=== PATIENT | female | born 1990 | race Caucasian/White ===

== ENCOUNTER 2019-07-17 09:18 | Emergency (ER) | payer OTHER, SELFPAY ==
[2019-07-17 09:39] LABS: APPEARANCE,URINE Clear (CLEAR); BILIRUBIN,URINE Negative (NEGATIVE); COLOR,URINE Yellow (YELLOW); GLUCOSE, URINE (UA) Negative (NEGATIVE); KETONES,URINE Negative (NEGATIVE); LEUKOCYTE ESTERASE ,URINE Negative (NEGATIVE); NITRATE,URINE Negative (NEGATIVE); OCCULT BLOOD,URINE Negative (NEGATIVE); PH,URINE 6.5 (5.0-8.0); PROTEIN,URINE Negative (NEGATIVE)
[2019-07-17 10:20] LABS: HCG,QUAL RESULT NEGATIVE (NEGATIVE)
[2019-07-17] MEDS ORDERED: DICYCLOMINE HCL 10 MG/ML 2ML AMP IM ONE (10:40)
[2019-07-17] MEDS ORDERED: SODIUM CHLORIDE 0.9% 1000ML 1,000 ML IV ONE (10:40)
[2019-07-17 10:56] LABS: BASOPHILS % (AUTO) 0.7 % (0.0-5.0); EOSINOPHILS % (AUTO) 2.3 % (0.0-8.0); HEMATOCRIT 38.8 % (36-48); LYMPHOCYTES % (AUTO) 17.7 % (21.0-51.0); MEAN CORPUSCULAR HEMOGLOBIN 30.4 pg (27.0-33.0); MEAN CORPUSCULAR VOLUME 89.4 fL (79-99); MONOCYTES % (AUTO) 4.1 % (3.0-13.0); NEUTROPHILS % (AUTO) 75.2 % (40.0-77.0); PLATELET COUNT (AUTO) 291 K/uL (130-400); RED BLOOD CELL COUNT(AUTO) 4.34 MIL/uL (4.00-5.50); RED CELL DISTRIBUTION WIDTH 12.5 % (11.0-15.5); WHITE BLOOD COUNT (AUTO) 10.9 K/uL (4.8-10.8)
[2019-07-17 11:09] LABS: CREATININE 0.9 mg/dL (0.5-1.5)
[2019-07-17 11:13] LABS: ALBUMIN 3.7 g/dL (3.5-5.0); BILIRUBIN,DIRECT 0.1 mg/dL (0.0-0.3); BILIRUBIN,TOTAL 0.3 mg/dL (0.2-1.0)
[2019-07-17 11:53] LABS: AMPHET/METH SCREEN,URINE NEGATIVE (NEGATIVE); BARBITURATE SCREEN, URINE NEGATIVE (NEGATIVE); BENZODIAZEPINES SCREEN,URINE NEGATIVE (NEGATIVE); CANNABINOID SCREEN,URINE NEGATIVE (NEGATIVE); COCAINE SCREEN,URINE NEGATIVE (NEGATIVE); OPIATE SCREEN,URINE NEGATIVE (NEGATIVE); PHENCYCLIDINE SCREEN,URINE NEGATIVE (NEGATIVE)
== END 2019-07-17 12:56 | disposition home or self-care (01) ==
LOC: EDH 09:18
DX: R10.84 Generalized abdominal pain (principal); R11.0 Nausea; Z87.891 Personal history of nicotine dependence
CPT/HCPCS: 36415; 80048; 80076; 80305; 81003; 81025; 83690; 85025; 96372; 99284; J0500; J7030

== ENCOUNTER 2023-07-15 06:21 | Day surgery (SDC) | payer OTHER ==
[2023-07-09 15:14] LABS: BASOPHILS # (AUTO) 0.06 K/uL (0.00-0.20); BASOPHILS % (AUTO) 0.7 % (0.0-5.0); EOSINOPHILS # (AUTO) 0.19 K/uL (0.00-0.70); EOSINOPHILS % (AUTO) 2.2 % (0.0-8.0); HEMATOCRIT 40.3 % (36-48); IMMATURE GRANULOCYTE ABSOLUTE 0.02 K/uL (0-1); LYMPHOCYTES # (AUTO) 2.3 K/uL (1.0-4.8); LYMPHOCYTES % (AUTO) 26.5 % (21.0-51.0); MEAN CORPUSCULAR HEMOGLOBIN 29.4 pg (27.0-33.0); MONOCYTES # (AUTO) 0.6 K/uL (0.1-1.0); NEUTROPHILS # (AUTO) 5.5 K/uL (1.8-7.7); NEUTROPHILS % (AUTO) 63.4 % (40.0-77.0); PLATELET COUNT (AUTO) 329 K/uL (130-400); RED BLOOD CELL COUNT(AUTO) 4.53 MIL/uL (4.00-5.50); RED CELL DISTRIBUTION WIDTH 12.1 % (11.0-15.5); WHITE BLOOD COUNT (AUTO) 8.7 K/uL (4.8-10.8)
[2023-07-09 15:23] LABS: CREATININE 0.9 mg/dL (0.5-1.5); POTASSIUM 3.7 mmol/L (3.5-5.1)
[2023-07-09 15:50] VITALS: BP 111/78; PULSE 70; RESP 16
[2023-07-15] VITALS (20 sets, daily range): BP systolic 91–126; BP diastolic 45–77; PULSE 61–87; RESP 12–20
[~2023-07-15] VITALS: Ht 152.4 cm; Wt 72.3 kg
[2023-07-15] MEDS ORDERED: SUCCINYLCHOLINE 200MG/10ML SYR ONE (06:41)
[2023-07-15] MEDS ORDERED: ONDANSETRON 4MG INJ ONE (06:41)
[2023-07-15] MEDS ORDERED: FENTANYL CITRATE PF 50 MCG/1 ML 2ML VIAL ONE (06:42)
[2023-07-15] MEDS ORDERED: PROPOFOL 10 MG/ML 20ML VIAL IV ONE (06:42)
[2023-07-15] MEDS ORDERED: MIDAZOLAM HCL 1 MG/ML 2ML VIAL ONE (06:42)
[2023-07-15] MEDS ORDERED: DEXAMETHASONE SOD PHOSPHATE 10MG/ML 1ML VIAL ONE (06:42)
[2023-07-15] MEDS ORDERED: ROCURONIUM 10MG/1ML SYR 10 MG/ML ML ONE (06:42)
[2023-07-15] MEDS ORDERED: LACTATED RINGERS 1000ML 1,000 ML IV ONE (06:48)
[2023-07-15] MEDS ORDERED: CEFAZOLIN SODIUM 2 GM VIAL ONE (06:48)
[2023-07-15] MEDS ORDERED: CHOL500051 PO (07:19)
[2023-07-15] MEDS ORDERED: OMEG-148 PO (07:19)
[2023-07-15] MEDS ORDERED: MULT-1367 PO (07:19)
[2023-07-15] MEDS ORDERED: VITAPAK PO (07:19)
[2023-07-15] MEDS ORDERED: EPINEPHRINE PF 1MG (1:1,000) 1 MG/ML AMP ONE (07:44)
[2023-07-15] MEDS ORDERED: BUPIVACAINE/PF 0.25% 30ML VIAL IJ ONE (07:44)
[2023-07-15] MEDS ORDERED: DEXMEDETOMIDINE HCL 200 MCG/2 ML VIAL IV ONE (07:57)
[2023-07-15] MEDS ORDERED: BUPIVACAINE/EPI/PF 0.25% 30ML VIAL IJ ONE (08:07)
[2023-07-15] MEDS ORDERED: MEPERIDINE-PF 25 MG/ML SYG ONE ×2 (08:18→09:33)
[2023-07-15] MEDS ORDERED: PHENYLEPHRINE HCL 10 MG/ML 1ML VIAL IV ONE (08:54)
[2023-07-15] MEDS ORDERED: BACITRACIN 28.4 GM OINT TP ONE (08:57)
[2023-07-15] MEDS ORDERED: GLYCOPYRROLATE 1 MG/5 ML SYRINGE ONE (08:59)
[2023-07-15] MEDS ORDERED: NEOSTIGMINE 5MG/5ML SYR IV ONE (08:59)
[2023-07-15] MEDS ORDERED: ACETAMINOPHEN 325 MG TAB ONE (10:27)
== END 2023-07-15 11:43 | disposition home or self-care (01) ==
LOC: DAH 06:21
PROVIDERS: ATTEND Surgery
DX: K43.9 Ventral hernia without obstruction or gangrene (principal); Z20.822 Contact with and (suspected) exposure to COVID-19; K21.9 Gastro-esophageal reflux disease without esophagitis; F17.200 Nicotine dependence, unspecified, uncomplicated; Z82.49 Family history of ischemic heart disease and other diseases of the circulatory system; Z83.3 Family history of diabetes mellitus; Z98.890 Other specified postprocedural states
CPT/HCPCS: 80048; 84703; 85025; 36415; 49593; 81025; 88302; A4600; J7030; J7120 ×2; J3010; J0330; J3490 ×4; J1100; J2710; J0171; J2250; J2704; J2405; J2175 ×2; J2371; J0690; C1769 ×2; G0168; A4649 ×2; A4215; A4223; A4222; A4221; A4663

== ENCOUNTER 2023-10-03 19:32 | Emergency (ER) | payer OTHER ==
[~2023-10-03] VITALS: Ht 152.4 cm; Wt 72.6 kg
[~2023-10-03 19:32] MED LIST: CHOL500051 PO; MULT-1367 PO; OMEG-148 PO; VITAPAK PO
[2023-10-03] MEDS ORDERED: IBUP-2077 PO (21:44)
[2023-10-03] MEDS ORDERED: PRED5TAB PO (21:44)
[2023-10-03 22:22] VITALS: BP 129/86; PULSE 88; RESP 16; O2SAT 100
[2023-10-03] MEDS ORDERED: PREDNISONE 10 MG TABLET PO ONE (22:30)
[2023-10-03] MEDS ORDERED: IBUPROFEN 800 MG TAB PO ONE (22:30)
== END 2023-10-03 22:26 | disposition home or self-care (01) ==
LOC: EDH 19:32
DX: M25.511 Pain in right shoulder (principal); M75.91 Shoulder lesion, unspecified, right shoulder
CPT/HCPCS: 99283; J7512